=== PATIENT | male | born 1980 | race African-American/Black ===

== ENCOUNTER 2021-12-12 05:09 | Inpatient (IN) | payer OTHER ==
[~2021-12-12] VITALS: Ht 180.3 cm; Wt 81.3 kg
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
[2021-12-12 05:15] VITALS: BP 138/103
[2021-12-12 05:51] LABS: ABSOLUTE NEUTROPHILS 5.6 thou/uL (1.4-8.2); BASOPHILS 0.9 % (0.0-2.0); EOSINOPHILS 3.4 % (0.0-3.0); HEMATOCRIT 37.4 % (42.0-52.0); HEMOGLOBIN 12.6 gm/dL (14.0-18.0); LYMPHOCYTES 35.9 % (24.0-44.0); MCH 33.4 pg (26.0-34.0); MCHC 33.6 g/dL (28.0-37.0); MCV 99.6 fL (80.0-100.0); MONOCYTES 5.8 % (1.0-8.0); PLATELET COUNT 311 thou/uL (150-400); RBC 3.75 mil/uL (4.50-6.00); RDW 13.1 % (10.5-14.5); WBC 10.4 thou/uL (4.0-11.0)
[2021-12-12 05:55] LABS: CALCIUM 8.2 mg/dL (8.5-10.1); CREATININE 1.3 mg/dL (0.7-1.3); POTASSIUM 4.8 mmol/L (3.5-5.1)
[2021-12-12 06:01] LABS: ALBUMIN 2.9 g/dL (3.4-5.0); TOTAL BILIRUBIN 0.3 mg/dL (0.2-1.0); TOTAL PROTEIN 5.6 g/dL (6.4-8.2)
[2021-12-12 13:53] VITALS: BP 162/104
[2021-12-12 18:33] VITALS: BP 138/91
[2021-12-12 19:34] VITALS: BP 174/84
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
[2021-12-13 08:39] VITALS: BP 169/84
--- NOTE | 2021-12-13 09:42 | NUR ---
ASSUMED PT CARE THIS AM. PT IS ALERT & ORIENTED X4. PT TOLERATED DIET WELL. NO C/O PAIN, NAUSEA AND VOMITING. PHYSICAL THERAPY WAS WORKING WITH PATIENT THIS AM. PT IS ON ROOM AIR. PT HAS L UA SLING. WILL CONTINUE TO MONITOR PT. FOLLOW POC.
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
[2021-12-13 11:50] VITALS: BP 149/108
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
[2021-12-13] MEDS ORDERED: PERCOCET PO (15:46)
[2021-12-13 15:49] VITALS: BP 149/108
== END 2021-12-13 17:05 | disposition home or self-care (01) | DRG 581 ==
LOC: ER 05:09 → EROBS 07:40 → TBA 14:18 → 4S 18:13
PROVIDERS: Emergency Medicine; Orthopaedic Surgery Sports Medicine; ADMIT Surgery; ATTEND Surgery
PROC: 0RBM0ZZ Excision of Left Elbow Joint, Open Approach (ICD-10-PCS; principal; 2021-12-12)
PROC: 0RQM0ZZ Repair Left Elbow Joint, Open Approach (ICD-10-PCS; principal; 2021-12-12)
PROC: 0JQ80ZZ Repair Abdomen Subcutaneous Tissue and Fascia, Open Approach (ICD-10-PCS; principal; 2021-12-12)
PROC: 0XQC0ZZ Repair Left Elbow Region, Open Approach (ICD-10-PCS; principal; 2021-12-12)
PROC: 0LQ60ZZ Repair Left Lower Arm and Wrist Tendon, Open Approach (ICD-10-PCS; principal; 2021-12-12)
DX: S51.012A Laceration without foreign body of left elbow, initial encounter (principal); S31.109A Unspecified open wound of abdominal wall, unspecified quadrant without penetration into peritoneal cavity, initial encounter; S51.002A Unspecified open wound of left elbow, initial encounter; F17.210 Nicotine dependence, cigarettes, uncomplicated; F12.90 Cannabis use, unspecified, uncomplicated; S31.119A Laceration without foreign body of abdominal wall, unspecified quadrant without penetration into peritoneal cavity, initial encounter; Z20.822 Contact with and (suspected) exposure to COVID-19; X58.XXXA Exposure to other specified factors, initial encounter; Y93.89 Activity, other specified; Y92.89 Other specified places as the place of occurrence of the external cause; Y99.8 Other external cause status; Z23 Encounter for immunization
CPT/HCPCS: 10100; 10102; 50010; 50101; 50386; 51739; 56525; 56527; 57091; 57103; 57178; 62110; 62900; 70005

== ENCOUNTER 2021-12-17 14:30 | Emergency (ER) | payer OTHER ==
[~2021-12-17] VITALS: Ht 180.3 cm; Wt 88.5 kg
[~2021-12-17 14:30] MED LIST: PERCOCET PO
[2021-12-17 14:51] VITALS: BP 117/67
== END 2021-12-17 15:10 | disposition home or self-care (01) ==
LOC: ER 14:30
DX: Z48.02 Encounter for removal of sutures (principal); Z53.21 Procedure and treatment not carried out due to patient leaving prior to being seen by health care provider

== ENCOUNTER 2021-12-25 07:11 | Emergency (ER) | payer OTHER ==
[~2021-12-25] VITALS: Ht 180.3 cm; Wt 83.9 kg
[2021-12-25 07:17] VITALS: BP 160/74
== END 2021-12-25 07:33 | disposition home or self-care (01) ==
LOC: ER 07:11
DX: S61.210D Laceration without foreign body of right index finger without damage to nail, subsequent encounter (principal); S61.011D Laceration without foreign body of right thumb without damage to nail, subsequent encounter; Z79.899 Other long term (current) drug therapy; X58.XXXD Exposure to other specified factors, subsequent encounter